=== PATIENT | male | born 1955 | race Caucasian/White ===

== ENCOUNTER 2023-12-14 09:07 | Emergency (ER) | payer BC ==
[~2023-12-14] VITALS: Ht 185.4 cm; Wt 88.6 kg
[2023-12-14 11:23] VITALS: BP 112/56; PULSE 66; RESP 16; O2SAT 98
[2023-12-14 11:49] VITALS: TEMP 97
== END 2023-12-14 11:53 | disposition home or self-care (01) ==
LOC: ER 09:07
DX: S00.83XA Contusion of other part of head, initial encounter (principal); X58.XXXA Exposure to other specified factors, initial encounter; Y93.89 Activity, other specified; Y92.89 Other specified places as the place of occurrence of the external cause; Y99.8 Other external cause status
CPT/HCPCS: 70450; 73110; 99284; A4565